=== PATIENT | male | born 1970 | race African-American/Black ===

== ENCOUNTER 2016-12-30 07:00 | Emergency (ER) | payer SELFPAY ==
--- NOTE | 2016-12-30 07:38 | RADIOLOGY REPORT (SQ) ---
EXAM DESCRIPTION: ANKLE LEFT COMPLETE COMPLETED DATE/TIME: 12/30/2016 7:29 am REASON FOR STUDY: left ankle pain/injury COMPARISON: None. NUMBER OF VIEWS: Three views. TECHNIQUE: AP, lateral, and oblique radiographic images acquired of the left ankle. LIMITATIONS: None. FINDINGS: MINERALIZATION: Normal. BONES: No acute fracture or dislocation. No worrisome bone lesions. JOINTS: No effusions. SOFT TISSUES: No soft tissue swelling. No foreign body. OTHER: No other significant finding. IMPRESSION: NEGATIVE STUDY OF THE LEFT ANKLE. NO RADIOGRAPHIC EVIDENCE OF ACUTE INJURY. TECHNICAL DOCUMENTATION: JOB ID: [id number] [employer]- All Rights Reserved
--- NOTE | 2016-12-30 08:15 | ER Document Report ---
ED Extremity Problem, Lower - General Chief Complaint: Foot Pain Stated Complaint: FOOT PAIN Time Seen by Provider: 12/30/16 07:22 Mode of Arrival: Ambulatory Information source: Patient Notes: Patient is a 46-year-old -[place] male who presents to the ER today for left ankle pain that started yesterday. Patient denies any injury, but was walking around when he felt immediate pain and the left side of the left ankle, now radiating like a band around the whole ankle. He denies any numbness or tingling, recent ankle injury.He states that it hurts worse to bear weight on and that he cannot Walk on it. - Related Data Allergies/Adverse Reactions: No Known Allergies Allergy (Unverified 12/30/16 07:08) Past Medical History - General Information source: Patient - Social History Smoking Status: Current Every Day Smoker Chew tobacco use (# tins/day): No Frequency of alcohol use: None Drug Abuse: None Family History: Reviewed & Not Pertinent Renal/ Medical History: Denies: Hx Peritoneal Dialysis Review of Systems - Review of Systems Constitutional: No symptoms reported EENT: No symptoms reported Cardiovascular: No symptoms reported Respiratory: No symptoms reported Gastrointestinal: No symptoms reported Genitourinary: No symptoms reported Male Genitourinary: No symptoms reported Musculoskeletal: See HPI Skin: No symptoms reported Hematologic/Lymphatic: No symptoms reported Neurological/Psychological: No symptoms reported Physical Exam - Vital signs Vitals: Temp Pulse Resp BP Pulse Ox 98.3 F 72 14 143/91 H 98 12/30/16 07:08 12/30/16 07:08 12/30/16 07:08 12/30/16 07:08 12/30/16 07:08 - Notes Notes: PHYSICAL EXAMINATION: GENERAL: Comfortable appearing, but in no acute distress. HEAD: Atraumatic, normocephalic. EYES: Pupils equal round and reactive to light, extraocular movements intact, sclera anicteric, conjunctiva are normal. NECK: Normal range of motion, supple without lymphadenopathy LUNGS: CTAB and equal. No wheezes rales or rhonchi. HEART: Regular rate and rhythm without murmurs EXTREMITIES: Tender over lateral malleolus of the left ankle, normal range of motion, no pitting edema. No cyanosis. NEUROLOGICAL: Cranial nerves grossly intact. Normal sensory/motor exams. PSYCH: Normal mood, normal affect. SKIN: Warm, Dry, normal turgor, no rashes or lesions noted Course - Re-evaluation Re-evalutation: 12/30/16 08:15 X-ray of the left ankle negative for any acute pathology, patient placed in Kai wrap. - Vital Signs Vital signs: Temp Pulse Resp BP Pulse Ox 98.4 F 73 18 153/95 H 97 12/30/16 08:43 12/30/16 08:43 12/30/16 08:43 12/30/16 08:43 12/30/16 08:43 Procedures - Immobilization Left Ankle Time completed: 08:18 Pre-Proc Neuro Vasc Exam: Normal Immobilizer type: Kai wrap Performed by: RN Post-Proc Neuro Vasc Exam: Normal Alignment checked and good: Yes Discharge - Discharge Clinical Impression: Left ankle sprain Qualifiers: Encounter type: initial encounter Involved ligament of ankle: unspecified ligament Qualified Code(s): S93.402A - Sprain of unspecified ligament of left ankle, initial encounter Condition: Stable Disposition: HOME, SELF-CARE Instructions: Sprained Ankle ([facility]), Ice Packs ([facility]) Additional Instructions: Return immediately for any new or worsening symptoms. Follow up with primary care provider, call tomorrow to make followup appointment. Prescriptions: Ibuprofen [Motrin 800 mg Tablet] 800 mg PO Q8H PRN #30 tab PRN Reason: Forms: Return to Work Referrals: LOCALMD,NO [Primary Care Provider] - Follow up as needed
[2016-12-30] MEDS ORDERED: HYDROCODONE/ACETAMINOPHEN 5-325 MG TABLET PO ONE (08:24)
[2016-12-30 09:05] VITALS: BP 153/95
== END 2016-12-30 09:34 | disposition home or self-care (01) ==
LOC: ER 07:00
DX: S93.402A Sprain of unspecified ligament of left ankle, initial encounter (principal); F17.200 Nicotine dependence, unspecified, uncomplicated; X58.XXXA Exposure to other specified factors, initial encounter
CPT/HCPCS: 99283; 73610; L1902

== ENCOUNTER 2018-03-02 23:06 | Observation (INO) | payer OTHER ==
[2018-03-03] MEDS ORDERED: NORMAL SALINE 1000 ML 1,000 ML IV ONE (01:47)
[2018-03-03] MEDS ORDERED: ONDANSETRON 4 MG TAB.RAPDIS PO ONE (01:47)
--- NOTE | 2018-03-03 01:50 | ER Document Report ---
ED Medical Screen (RME) - General Chief Complaint: Upper Abdominal Pain Stated Complaint: STOMACH PAIN Notes: 47-year-old male, comes by EMS for chief complaint of falling and hitting his head, he states he fell because he is drunk, he states he has had a few beers and a couple of shots. He did get knocked out. He has vomited twice. He states his head hurts a lot and he is nauseated. He denies any medications, recreational drugs, or medical history. Roommate called EMS. TRAVEL OUTSIDE OF THE [place] IN LAST 30 DAYS: No - Related Data Allergies/Adverse Reactions: No Known Allergies Allergy (Unverified 12/30/16 07:08) Past Medical History Renal/ Medical History: Denies: Hx Peritoneal Dialysis Physical Exam - Vital signs Vitals: Temp Pulse Resp BP Pulse Ox 98.8 F 68 16 156/95 H 98 03/02/18 23:11 03/02/18 23:11 03/02/18 23:11 03/02/18 23:11 03/02/18 23:11 - HEENT Head: Normocephalic. No: Atraumatic - Left occipital area swelling consistent with hematoma, no open wound, no other signs of injury - Respiratory Chest status: No: Tender - Abdominal Tenderness: No: Tender - Back Back: Normal. No: Deformity/step-off, Vertebra tenderness, Wounds Course - Re-evaluation Re-evalutation: Patient ambulated without difficulty, he is oriented and alert at this time, he follows commands without any difficulty. He does have hematoma over the occipital area. Performing CAT scan of the head and neck per Nexus criteria, no additional injuries noted over his body. - Vital Signs Vital signs: Temp Pulse Resp BP Pulse Ox 98.8 F 68 16 156/95 H 98 03/02/18 23:11 03/02/18 23:11 03/02/18 23:11 03/02/18 23:11 03/02/18 23:11 Doctor's Discharge - Discharge Referrals: LOCALMD,NO [Primary Care Provider] - Follow up as needed
[2018-03-03] MEDS ORDERED: DICYCLOMINE HCL INJ 20 MG/2 ML AMPULE IM ONE (02:35)
--- NOTE | 2018-03-03 03:01 | ER Document Report ---
ED General - General Chief Complaint: Upper Abdominal Pain Stated Complaint: STOMACH PAIN Time Seen by Provider: 03/03/18 01:52 Notes: Patient is a pleasant 47-year-old male who presents with complaint of abdominal pain. Says he has a history of IBS. He says he feels like one of his IBS flares except more intense. He has crampy diffuse abdominal pain that is worse in the upper abdomen. Some nausea. He does have some vomiting. No diarrhea. No blood in stool. Denies any recent stressors. He has seen a mold operator and has had colonoscopies which have been negative. No chest pain. No shortness of breath. No fevers. No other complaints at this time. Patient says he does drink alcohol almost every day. TRAVEL OUTSIDE OF THE [place] IN LAST 30 DAYS: No - Related Data Allergies/Adverse Reactions: No Known Allergies Allergy (Unverified 12/30/16 07:08) Past Medical History - Social History Smoking Status: Never Smoker Frequency of alcohol use: Heavy Drug Abuse: None Family History: Reviewed & Not Pertinent Renal/ Medical History: Denies: Hx Peritoneal Dialysis Review of Systems - Review of Systems Notes: My Normal Review Basic REVIEW OF SYSTEMS: CONSTITUTIONAL : Denies fever, chills, or sweats. Denies recent illness. EENT: Denies eye, ear, throat, or mouth pain or symptoms. Denies nasal or sinus congestion. CARDIOVASCULAR: Denies chest pain. RESPIRATORY: Denies cough, cold, or chest congestion. Denies shortness of breath, difficulty breathing, or wheezing. GASTROINTESTINAL: Abdominal pain. Vomiting. GENITOURINARY: Denies difficulty urinating, painful urination, burning, frequency, or blood in urine. MUSCULOSKELETAL: Denies neck or back pain or joint pain or swelling. SKIN: Denies rash or skin lesions. NEUROLOGICAL: Denies altered mental status or loss of consciousness. Denies headache. Denies weakness or paralysis or loss of use of either side. Denies problems with gait or speech. Denies sensory or motor loss. ALL OTHER SYSTEMS REVIEWED AND NEGATIVE. Physical Exam - Vital signs Vitals: Temp Pulse Resp BP Pulse Ox 98.8 F 68 16 156/95 H 98 03/02/18 23:11 03/02/18 23:11 03/02/18 23:11 03/02/18 23:11 03/02/18 23:11 - Notes Notes: General Appearance: Well nourished, alert, cooperative, no acute distress, moderate obvious discomfort. Vitals: reviewed, See vital signs table. Head: no swelling or tenderness to the head Eyes: PERRL, EOMI, Conjuctiva clear Mouth: No decreasd moisture Lungs: No wheezing, No rales, No rhonci, No accessory muscle use, good air exchange bilaterally. Heart: Normal rate, Regular rythm, No murmur, no rub Abdomen: Normal BS, soft, No rigidity, Palpation over upper abdomen bilaterally. No pain to lower abdomen, No guarding, no rebound, no abdominal masses, no organomegaly Extremities: strength 5/5 in all extremities, good pulses in all extremities, no swelling or tenderness in the extremities, no edema. Skin: warm, dry, appropriate color, no rash Neuro: speech clear, oriented x 3, normal affect, responds appropriately to questions. Course - Re-evaluation Re-evalutation: 03/03/18 05:38 Patient's lipase came back elevated. He admits to history of frequent alcohol use. I do suspect his pancreatitis is related to his alcohol use. I do not suspect gallbladder disease and that most his pain is epigastric and left upper quadrant and also he does not have any elevation of liver enzymes. I did talk to patient about outpatient therapy but the patient concerned that his pain would come back this is intense and requests just to be kept in hospital for next 24 hours to see see if he improves. I did speak with the hospitalist, Dr. Osborne, who agrees to admit the patient. Dictation of this chart was performed using voice recognition software; therefore, there may be some unintended grammatical errors. - Vital Signs Vital signs: Temp Pulse Resp BP Pulse Ox 98.8 F 68 16 156/95 H 98 03/02/18 23:11 03/02/18 23:11 03/02/18 23:11 03/02/18 23:11 03/02/18 23:11 - Laboratory Result Diagrams: 03/03/18 02:00 03/03/18 03:25 Laboratory results interpreted by me: 03/03/18 03/03/18 02:00 03:25 Seg Neutrophils % 78.4 H Carbon Dioxide 21 L Glucose 111 H Lipase 1037.8 H Discharge - Discharge Clinical Impression: Pancreatitis Qualifiers: Chronicity: acute Pancreatitis type: alcohol induced Acute pancreatitis complication: no infection or necrosis Qualified Code(s): K85.20 - Alcohol induced acute pancreatitis without necrosis or infection Condition: Stable Disposition: ADMITTED OBSERVATION Admitting Provider: Hospitalist Unit Admitted: Medical Floor Referrals: LOCALMD,NO [NO LOCAL MD] - Follow up as needed
[2018-03-03 03:05] LABS: ABSOLUTE EOSINOPHILS # (AUTO) 0.1 10^3/uL (0.0-0.6); ABSOLUTE LYMPHOCYTES (AUTO) 1.3 10^3/uL (0.5-4.7); ABSOLUTE MONOCYTES (AUTO) 0.6 10^3/uL (0.1-1.4); ABSOLUTE NEUT (AUTO) 6.9 10^3/uL (1.7-8.2); BASOPHILS % (AUTO) 0.2 % (0-2); EOSINOPHILS % (AUTO) 0.6 % (0-6); HEMATOCRIT 42.6 % (37.9-51.0); HEMOGLOBIN 14.4 g/dL (13.5-17.0); LYMPHOCYTES % (AUTO) 14.2 % (13-45); MEAN CORPUSCULAR HEMOGLOBIN 28.2 pg (27.0-33.4); MEAN CORPUSCULAR HGB CONC 33.9 g/dL (32.0-36.0); MEAN CORPUSCULAR VOLUME 83 fl (80-97); MONOCYTES % (AUTO) 6.6 % (3-13); PLATELET COUNT 173 10^3/uL (150-450); RED BLOOD COUNT 5.12 10^6/uL (4.35-5.55); RED CELL DISTRIBUTION WIDTH 13.6 % (11.5-14.0); SEGMENTED NEUTROPHILS % (AUTO) 78.4 % (42-78); TOTAL CELLS COUNTED % (AUTO) 100 %; WHITE BLOOD COUNT 8.8 10^3/uL (4.0-10.5)
[2018-03-03] MEDS ORDERED: HYDROMORPHONE HCL INJ/PF 2 MG/ML AMPULE IV ONE ×2 (03:46→04:48)
[2018-03-03 04:06] LABS: BLOOD UREA NITROGEN 7 mg/dL (7-20); CALCIUM 8.8 mg/dL (8.4-10.2)
[2018-03-03 04:07] LABS: ALANINE AMINOTRANSFERASE 48 U/L (21-72); ALBUMIN 3.9 g/dL (3.5-5.0); ALKALINE PHOSPHATASE 72 U/L (38-126); ANION GAP 14 (5-19); ASPARTATE AMINO TRANSFERASE 47 U/L (17-59); BILIRUBIN,DIRECT 0.4 mg/dL (0.0-0.4); BILIRUBIN,TOTAL 0.8 mg/dL (0.2-1.3); CARBON DIOXIDE 21 mmol/L (22-30); CHLORIDE 106 mmol/L (98-107); GLUCOSE 111 mg/dL (75-110); LIPASE 1037.8 U/L (23-300); POTASSIUM 3.8 mmol/L (3.6-5.0); SODIUM 141.2 mmol/L (137-145); TOTAL PROTEIN 7.1 g/dL (6.3-8.2)
[2018-03-03] MEDS ORDERED: VANCOMYCIN HCL INJ 1000 MG VIAL IV ONE (05:27)
[2018-03-03] MEDS ORDERED: FUROSEMIDE INJ/PF 40 MG/4 ML SDV IV ONE (05:28)
[2018-03-03] MEDS ORDERED: IPRATROPIUM/ALBUTEROL 0.5-2.5 MG/3 ML AMPUL NEB PRN (05:33)
[2018-03-03] MEDS ORDERED: KETOROLAC TROMETHAMINE INJ/PF 30 MG/1 ML SDV IV PRN (05:33)
[2018-03-03] MEDS ORDERED: MAG HYDROX/AL HYDROX/SIMETH SUSP 30 ML UDCUP PO PRN (05:33)
[2018-03-03] MEDS ORDERED: HYDRALAZINE HCL INJ/PF 20 MG/1 ML SDV IV PRN (05:33)
[2018-03-03] MEDS ORDERED: VANCOMYCIN HCL INJ 1000 MG VIAL ONE (05:58)
[2018-03-03] MEDS: HEPARIN SOD (PORCINE) 5,000 UNIT/ML 1 ML SYRINGE SUBCUT SCH ×3 (06:37→22:53)
--- NOTE | 2018-03-03 06:38 | PDOC H&P ---
History of Present Illness Admission Date/PCP: 03/03/18 05:42 Patient complains of: Epigastric abdominal pain History of Present Illness: UMU OSORIO is a 47 year old male with a past medical history of irritable bowel syndrome and alcohol induced pancreatitis. Patient presents with 72 hours of abdominal pain which is 3 out of 5 intensity, nonradiating, boring in nature associated with nausea and vomiting of gastric content. Worsened by p.o. intake. Recognizing symptoms he seeks evaluation emergency room where he is found to have an elevated lipase but unremarkable LFTs and CT abdomen pelvis. He requires IV medication for ongoing symptoms and subsequently referred to the hospitalist for admission. He admits previous episode approximately 1 year ago. His last drink of alcohol was approximately 72 hours ago, he denies new medication or history of alcohol withdrawal, blackouts or seizure. Past Medical History Medical History: None GI Medical History: Reports: Other - Pancreatitis and irritable bowel syndrome Psychiatric Medical History: Denies: Substance Abuse, Tobacco Dependency Past Surgical History Past Surgical History: Reports: None Social History Information Source: Patient Lives with: Spouse/Significant other Smoking Status: Never Smoker Frequency of Alcohol Use: Heavy - Patient estimates 10-15 units of alcohol 3-5 days a week. Drugs: None - Advance Directive Resuscitation Status: Full Code Family History Family History: Hypertension Parental Family History Reviewed: Yes Children Family History Reviewed: Yes Sibling(s) Family History Reviewed.: Yes Medication/Allergy Home Medications: Ibuprofen [Motrin 800 mg Tablet] 800 mg PO Q8H PRN #30 tab 12/30/16 Allergies/Adverse Reactions: No Known Allergies Allergy (Unverified 12/30/16 07:08) Review of Systems Constitutional: PRESENT: as per HPI Eyes: ABSENT: visual disturbances Ears: ABSENT: hearing changes Cardiovascular: ABSENT: chest pain, dyspnea on exertion, edema, orthropnea, palpitations Respiratory: ABSENT: cough, hemoptysis Gastrointestinal: PRESENT: as per HPI, abdominal pain, bloating, diarrhea, nausea, vomiting. ABSENT: constipation Genitourinary: ABSENT: dysuria, hematuria Musculoskeletal: ABSENT: joint swelling Integumentary: ABSENT: rash, wounds Neurological: ABSENT: abnormal gait, abnormal speech, confusion, dizziness, focal weakness, syncope Psychiatric: ABSENT: anxiety, depression, homidical ideation, suicidal ideation Endocrine: ABSENT: cold intolerance, heat intolerance, polydipsia, polyuria Hematologic/Lymphatic: ABSENT: easy bleeding, easy bruising Physical Exam Vital Signs: Temp Pulse Resp BP Pulse Ox 98.8 F 68 16 156/95 H 98 03/02/18 23:11 03/02/18 23:11 03/02/18 23:11 03/02/18 23:11 03/02/18 23:11 General appearance: PRESENT: cooperative, mild distress, well-developed, well- nourished. ABSENT: disheveled Head exam: PRESENT: atraumatic, normocephalic Eye exam: PRESENT: conjunctiva pink, EOMI, PERRLA. ABSENT: scleral icterus Ear exam: PRESENT: normal external ear exam Mouth exam: PRESENT: moist, tongue midline Neck exam: ABSENT: carotid bruit, JVD, lymphadenopathy, thyromegaly Respiratory exam: PRESENT: clear to auscultation hal. ABSENT: rales, rhonchi, wheezes Cardiovascular exam: PRESENT: RRR. ABSENT: diastolic murmur, rubs, systolic murmur Pulses: PRESENT: normal dorsalis pedis pul Vascular exam: PRESENT: normal capillary refill GI/Abdominal exam: PRESENT: distended, hyperactive bowel sounds, normal bowel sounds, soft, tenderness. ABSENT: firm, guarding, mass, organolmegaly, rebound Rectal exam: PRESENT: deferred Extremities exam: PRESENT: full ROM. ABSENT: calf tenderness, clubbing, pedal edema Neurological exam: PRESENT: alert, awake, oriented to person, oriented to place , oriented to time, oriented to situation, CN II-XII grossly intact. ABSENT: motor sensory deficit Psychiatric exam: PRESENT: appropriate affect, normal mood. ABSENT: homicidal ideation, suicidal ideation Skin exam: PRESENT: dry, intact, warm. ABSENT: cyanosis, rash Assessment & Plan - Diagnosis (1) Alcoholic pancreatitis Qualifiers: Chronicity: acute Acute pancreatitis complication: unspecified Qualified Code(s): K85.20 - Alcohol induced acute pancreatitis without necrosis or infection Is this a current diagnosis for this admission?: Yes Plan: Med floor observation, bowel rest, symptomatic management, IV fluids and thiamine. Education (2) Alcohol dependence Is this a current diagnosis for this admission?: Yes Plan: Thiamine and folate, education, as needed Ativan though doubt evolution of withdrawal (3) Nausea & vomiting Is this a current diagnosis for this admission?: Yes Plan: Secondary to #1, symptomatic management. (4) Abdominal pain Is this a current diagnosis for this admission?: Yes Plan: Secondary to #1, nonnarcotic symptomatic management. - Time Time Spent: 30 to 50 Minutes
[2018-03-03] MEDS ORDERED: FUROSEMIDE INJ/PF 40 MG/4 ML SDV ONE (06:41)
[2018-03-03] MEDS: NORMAL SALINE 1000 ML 1,000 ML IV PRN ×2 (09:16→14:38)
[2018-03-03] MEDS ORDERED: THIAMINE HCL 100 MG, FOLIC ACID 1 MG in NORMAL SALINE 250 ML IV SCH (10:00)
[2018-03-03 12:47] LABS: URINE AMPHETAMINES SCREEN NEGATIVE; URINE BARBITURATES SCREEN NEGATIVE; URINE BENZODIAZEPINES SCREEN NEGATIVE; URINE COCAINE SCREEN NEGATIVE; URINE MARIJUANA (THC) SCREEN NEGATIVE; URINE METHADONE SCREEN NEGATIVE; URINE PHENCYCLIDINE SCREEN NEGATIVE
[2018-03-03] MEDS ORDERED: HYDROMORPHONE HCL INJ/PF 2 MG/ML AMPULE IV PRN (14:18)
[2018-03-03] MEDS: MULTIVITAMIN TABLET PO SCH (15:17)
[2018-03-03] MEDS: FOLIC ACID 1 MG TABLET PO SCH (15:17)
--- NOTE | 2018-03-03 16:10 | RADIOLOGY REPORT (SQ) ---
EXAM DESCRIPTION: CT ABD/PELVIS NO ORAL OR IV COMPLETED DATE/TIME: 03/03/2018 3:43 pm REASON FOR STUDY: acute pancreatitis COMPARISON: None. TECHNIQUE: CT scan of the abdomen and pelvis performed without intravenous or oral contrast. Images reviewed with lung, soft tissue, and bone windows. Reconstructed coronal and sagittal MPR images revi ewed. All images stored on PACS. All CT scanners at this facility use dose modulation, iterative reconstruction, and/or weight based d osing when appropriate to reduce radiation dose to as low as reasonably achievable (ALARA). [facility]: Dose Right [facility]: CareDose [facility]: Dose Right [facility]: Teradose 4D [facility]: [employer] RADIATION DOSE: CT Rad equipment meets quality standard of care and radiation dose reduction techniq ues were employed. CTDIvol: 5.6 mGy. DLP: 324 mGy-cm.mGy. LIMITATIONS: None. FINDINGS: LOWER CHEST: No significant findings. No nodules or infiltrates. NON-CONTRASTED LIVER, SPLEEN, ADRENALS: Evaluation limited by lack of IV contrast. No identified sign ificant masses. PANCREAS: Diffuse peripancreatic stranding with edema extending into the mesenteries and along the ri ght flank. No fluid collection. No mass. GALLBLADDER: No identified stones by CT criteria. No inflammatory changes to suggest cholecystitis. RIGHT KIDNEY AND URETER: No suspicious masses. Assessment limited by lack of IV contrast. No signif icant calcifications. No hydronephrosis or hydroureter. LEFT KIDNEY AND URETER: No suspicious masses. Assessment limited by lack of IV contrast. No signifi cant calcifications. No hydronephrosis or hydroureter. AORTA AND RETROPERITONEUM: No aneurysm. No retroperitoneal masses or adenopathy. BOWEL AND PERITONEAL CAVITY: No obvious masses or inflammatory changes. No free fluid. APPENDIX: Normal. PELVIS, BLADDER, AND ABDOMINAL WALL:No abnormal masses. No free fluid. Bladder normal. BONES: No significant findings. OTHER: No other significant finding. IMPRESSION: Acute pancreatitis with peripancreatic fat stranding edema extending in the mesenteries and along the right flank. No fluid collection COMMENT: Quality ID # [id number]: Final reports with documentation of one or more dose reduction techniques (e.g., Automated exposure control, adjustment of the mA and/or kV according to patient size, use of iterative reconstruction technique) TECHNICAL DOCUMENTATION: JOB ID: [id number] [employer]- All Rights Reserved Reading location - IP/workstation name: [email or web address]
--- NOTE | 2018-03-03 21:35 | PDOC PROGRESS REPORT ---
Subjective Progress Note for:: 03/03/18 Subjective:: 47-year-old male with a known alcohol history, presenting with likely acute pancreatitis with elevated lipase, complaints of nausea with vomiting and loose stools. He describes a history of irritable bowel syndrome and initially thought this was secondary to that. Describes drinking at least 3 times per week shots plus multiple glasses of beer. Denies a prior cholecystectomy. Denies any gallstone history and his family or himself. Describes current abdominal pain as a 3/10. No CT of Abd on chart, so will evaluate imaging of pancreas. Patient denies any recent imaging. Reason For Visit: ETOH PANCREATITIS NAUSEA VOMITING Physical Exam Vital Signs: Temp Pulse Resp BP Pulse Ox 98.5 F 73 14 136/90 H 99 03/03/18 11:56 03/03/18 11:56 03/03/18 11:56 03/03/18 11:56 03/03/18 11:56 Intake & Output 03/02/18 03/03/18 03/04/18 06:59 06:59 06:59 Intake Total 934.2 Output Total 600 Balance 334.2 Weight 81.6 kg General appearance: PRESENT: no acute distress. ABSENT: disheveled Head exam: PRESENT: atraumatic, normocephalic Eye exam: ABSENT: conjunctival injection, EOMI Ear exam: PRESENT: normal external ear exam. ABSENT: bleeding Mouth exam: PRESENT: moist. ABSENT: dry mucosa Neck exam: PRESENT: full ROM. ABSENT: JVD Respiratory exam: ABSENT: accessory muscle use, rales, rhonchi, stridor Cardiovascular exam: PRESENT: RRR, +S1, +S2 Pulses: PRESENT: normal carotid pulses. ABSENT: normal dorsalis pedis pul GI/Abdominal exam: PRESENT: guarding, soft, tenderness. ABSENT: ascites, mass, rigid Extremities exam: ABSENT: calf tenderness, joint swelling Musculoskeletal exam: PRESENT: ambulatory, full ROM Neurological exam: PRESENT: alert, oriented to person, oriented to place, oriented to time, oriented to situation Psychiatric exam: ABSENT: agitated, anxious Focused psych exam: ABSENT: paranoid, pressured speech Skin exam: PRESENT: dry. ABSENT: mottled Assessment & Plan - Diagnosis (1) Pancreatitis Qualifiers: Chronicity: acute Pancreatitis type: alcohol induced Acute pancreatitis complication: no infection or necrosis Qualified Code(s): K85.20 - Alcohol induced acute pancreatitis without necrosis or infection Is this a current diagnosis for this admission?: Yes Plan: Continue IVF support and pain medications. discussed alcohol abstinence and potential progress of his condition. Will check CT Abd/Pelvis to assess for necrosis or pseudocysts. positive for elevated Lipase, consistent with Acute pancreatitis (2) Alcoholic pancreatitis Qualifiers: Chronicity: acute Acute pancreatitis complication: unspecified Qualified Code(s): K85.20 - Alcohol induced acute pancreatitis without necrosis or infection Is this a current diagnosis for this admission?: Yes Plan: please see above (3) Alcohol dependence Is this a current diagnosis for this admission?: Yes Plan: continue thiamine. add multivitamin and folate encourage alcohol cessation. (4) Nausea & vomiting Is this a current diagnosis for this admission?: Yes Plan: continue prn antiemetics - Time Time Spent with patient: 15-24 minutes - Inpatient Certification Based on my medical assessment, after consideration of the patient's comorbidities, presenting symptoms, or acuity I expect that the services needed warrant INPATIENT care.: Yes I certify that my determination is in accordance with my understanding of Medicare's requirements for reasonable and necessary INPATIENT services [42 CFR 412.3e].: Yes Medical Necessity: Need Close Monitoring Due to Risk of Patient Decompensation
[2018-03-04] MEDS: ACETAMINOPHEN 325 MG TABLET PO PRN ×2 (05:44→11:44)
[2018-03-04] MEDS: HEPARIN SOD (PORCINE) 5,000 UNIT/ML 1 ML SYRINGE SUBCUT SCH ×3 (05:45→22:29)
[2018-03-04 06:41] LABS: ABSOLUTE EOSINOPHILS # (AUTO) 0.2 10^3/uL (0.0-0.6); ABSOLUTE LYMPHOCYTES (AUTO) 1.3 10^3/uL (0.5-4.7); ABSOLUTE MONOCYTES (AUTO) 0.4 10^3/uL (0.1-1.4); ABSOLUTE NEUT (AUTO) 2.8 10^3/uL (1.7-8.2); BASOPHILS % (AUTO) 0.5 % (0-2); HEMATOCRIT 36.4 % (37.9-51.0); HEMOGLOBIN 12.5 g/dL (13.5-17.0); LYMPHOCYTES % (AUTO) 26.8 % (13-45); MEAN CORPUSCULAR HEMOGLOBIN 28.7 pg (27.0-33.4); MEAN CORPUSCULAR HGB CONC 34.3 g/dL (32.0-36.0); MEAN CORPUSCULAR VOLUME 84 fl (80-97); MONOCYTES % (AUTO) 8.9 % (3-13); PLATELET COUNT 135 10^3/uL (150-450); RED BLOOD COUNT 4.36 10^6/uL (4.35-5.55); RED CELL DISTRIBUTION WIDTH 13.6 % (11.5-14.0); SEGMENTED NEUTROPHILS % (AUTO) 58.8 % (42-78); TOTAL CELLS COUNTED % (AUTO) 100 %; WHITE BLOOD COUNT 4.7 10^3/uL (4.0-10.5)
[2018-03-04 06:56] LABS: ALANINE AMINOTRANSFERASE 41 U/L (21-72); ALBUMIN 3.6 g/dL (3.5-5.0); ALKALINE PHOSPHATASE 70 U/L (38-126); ANION GAP 10 (5-19); ASPARTATE AMINO TRANSFERASE 40 U/L (17-59); BILIRUBIN,DIRECT 0.4 mg/dL (0.0-0.4); BILIRUBIN,TOTAL 0.7 mg/dL (0.2-1.3); BLOOD UREA NITROGEN 7 mg/dL (7-20); CALCIUM 8.7 mg/dL (8.4-10.2); CARBON DIOXIDE 28 mmol/L (22-30); CHLORIDE 101 mmol/L (98-107); CHOLESTEROL 255.52 mg/dL (0-200); GLUCOSE 91 mg/dL (75-110); POTASSIUM 3.5 mmol/L (3.6-5.0); SODIUM 139.4 mmol/L (137-145); TOTAL PROTEIN 6.9 g/dL (6.3-8.2)
[2018-03-04 07:06] LABS: DIRECT LDL 51 mg/dL (<100)
[2018-03-04 07:25] LABS: TRIGLYCERIDES 689 mg/dL (<150)
[2018-03-04] MEDS: FOLIC ACID 1 MG TABLET PO SCH (10:04)
[2018-03-04] MEDS: THIAMINE HCL 100 MG TABLET PO SCH (10:04)
[2018-03-04] MEDS: MULTIVITAMIN TABLET PO SCH (10:04)
--- NOTE | 2018-03-04 21:41 | PDOC PROGRESS REPORT ---
Subjective Progress Note for:: 03/04/18 Subjective:: 47-year-old male with a known alcohol history, presenting with likely acute pancreatitis with elevated lipase, complaints of nausea with vomiting and loose stools. He describes a history of irritable bowel syndrome and initially thought this was secondary to that. Describes drinking at least 3 times per week shots plus multiple glasses of beer. Denies a prior cholecystectomy. Denies any gallstone history and his family or himself. CT abd/pelvis showed pancreatitis with no signs of necrosis or pseudocyst. Abdominal pain improving today. Advancing diet. Reason For Visit: ETOH PANCREATITIS NAUSEA VOMITING Physical Exam Vital Signs: Temp Pulse Resp BP Pulse Ox 98.6 F 79 18 146/96 H 97 03/04/18 19:25 03/04/18 19:25 03/04/18 19:25 03/04/18 19:25 03/04/18 19:25 Intake & Output 03/03/18 03/04/18 03/05/18 06:59 06:59 06:59 Intake Total 2611.2 520 Output Total 600 Balance 2011.2 520 Weight 84.5 kg General appearance: PRESENT: no acute distress, cooperative Head exam: PRESENT: atraumatic, normocephalic Eye exam: PRESENT: EOMI, PERRLA Ear exam: PRESENT: normal external ear exam. ABSENT: bleeding Mouth exam: PRESENT: moist, neck supple. ABSENT: dry mucosa Respiratory exam: ABSENT: accessory muscle use, rales, rhonchi, wheezes Cardiovascular exam: PRESENT: RRR, +S1, +S2 Pulses: PRESENT: normal radial pulses, normal dorsalis pedis pul Vascular exam: PRESENT: normal capillary refill. ABSENT: pallor GI/Abdominal exam: PRESENT: soft, tenderness. ABSENT: distended, hyperactive bowel sounds, hypoactive bowel sounds, rigid Extremities exam: ABSENT: calf tenderness, joint swelling Musculoskeletal exam: PRESENT: ambulatory, full ROM Neurological exam: PRESENT: alert, oriented to person, oriented to place, oriented to time, oriented to situation, CN II-XII grossly intact Psychiatric exam: ABSENT: agitated, anxious Focused psych exam: ABSENT: catatonic, paranoid Skin exam: ABSENT: abrasion, mottled Results Laboratory Results: 03/04/18 05:39 03/04/18 05:39 03/04/18 03/04/18 05:39 05:39 WBC 4.7 RBC 4.36 Hgb 12.5 L Hct 36.4 L MCV 84 MCH 28.7 MCHC 34.3 RDW 13.6 Plt Count 135 L Seg Neutrophils % 58.8 Lymphocytes % 26.8 Monocytes % 8.9 Eosinophils % 5.0 Basophils % 0.5 Absolute Neutrophils 2.8 Absolute Lymphocytes 1.3 Absolute Monocytes 0.4 Absolute Eosinophils 0.2 Absolute Basophils 0.0 Sodium 139.4 Potassium 3.5 L Chloride 101 Carbon Dioxide 28 Anion Gap 10 BUN 7 Creatinine 0.82 Est GFR ( Amer) > 60 Est GFR (Non-Af Amer) > 60 Glucose 91 Calcium 8.7 Total Bilirubin 0.7 AST 40 ALT 41 Alkaline Phosphatase 70 Total Protein 6.9 Albumin 3.6 Triglycerides 689 H Cholesterol 255.52 H LDL Cholesterol Direct 51 VLDL Cholesterol UNABLE TO CALCULATE HDL Cholesterol 41 Impressions: Abdomen/Pelvis CT 03/03/18 00:00 IMPRESSION: Acute pancreatitis with peripancreatic fat stranding edema extending in the mesenteries and along the right flank. No fluid collection Assessment & Plan - Diagnosis (1) Pancreatitis Qualifiers: Chronicity: acute Pancreatitis type: alcohol induced Acute pancreatitis complication: no infection or necrosis Qualified Code(s): K85.20 - Alcohol induced acute pancreatitis without necrosis or infection Is this a current diagnosis for this admission?: Yes Plan: Continue prn pain medications. discussed alcohol abstinence and potential progress of his condition. CT Abd/Pelvis positive for pancreatitis, negative for necrosis or pseudocysts. advance diet as tolerated. (2) Alcoholic pancreatitis Qualifiers: Chronicity: acute Acute pancreatitis complication: unspecified Qualified Code(s): K85.20 - Alcohol induced acute pancreatitis without necrosis or infection Is this a current diagnosis for this admission?: Yes Plan: please see above (3) Alcohol dependence Is this a current diagnosis for this admission?: Yes Plan: continue thiamine, multivitamin and folate counseled again on alcohol cessation. May benefit from AA group after d/c (4) Nausea & vomiting Is this a current diagnosis for this admission?: Yes Plan: continue prn antiemetics - Time Time Spent with patient: 15-24 minutes - Inpatient Certification Based on my medical assessment, after consideration of the patient's comorbidities, presenting symptoms, or acuity I expect that the services needed warrant INPATIENT care.: Yes I certify that my determination is in accordance with my understanding of Medicare's requirements for reasonable and necessary INPATIENT services [42 CFR 412.3e].: Yes Medical Necessity: Need Close Monitoring Due to Risk of Patient Decompensation
[2018-03-05] MEDS: HEPARIN SOD (PORCINE) 5,000 UNIT/ML 1 ML SYRINGE SUBCUT SCH (05:22)
[2018-03-05 05:31] LABS: HEMATOCRIT 35.2 % (37.9-51.0); MEAN CORPUSCULAR HEMOGLOBIN 28.5 pg (27.0-33.4); MEAN CORPUSCULAR HGB CONC 34.2 g/dL (32.0-36.0); MEAN CORPUSCULAR VOLUME 84 fl (80-97); PLATELET COUNT 140 10^3/uL (150-450); RED BLOOD COUNT 4.22 10^6/uL (4.35-5.55); RED CELL DISTRIBUTION WIDTH 13.4 % (11.5-14.0); WHITE BLOOD COUNT 4.5 10^3/uL (4.0-10.5)
[2018-03-05 05:43] LABS: ALBUMIN 3.6 g/dL (3.5-5.0); ANION GAP 9 (5-19); BLOOD UREA NITROGEN 6 mg/dL (7-20); CALCIUM 8.9 mg/dL (8.4-10.2); CARBON DIOXIDE 28 mmol/L (22-30); CHLORIDE 101 mmol/L (98-107); GLUCOSE 125 mg/dL (75-110); PHOSPHORUS 3.8 mg/dL (2.5-4.5); POTASSIUM 3.5 mmol/L (3.6-5.0); SODIUM 137.9 mmol/L (137-145)
[2018-03-05] MEDS ORDERED: POTASSIUM CHLORIDE 10 MEQ CAPSULE.ER PO ONE (08:33)
[2018-03-05] MEDS ORDERED: NORMAL SALINE 1000 ML 1,000 ML IV PRN (08:35)
[2018-03-05] MEDS: THIAMINE HCL 100 MG TABLET PO SCH (09:16)
[2018-03-05] MEDS: MULTIVITAMIN TABLET PO SCH (09:16)
[2018-03-05] MEDS: FOLIC ACID 1 MG TABLET PO SCH (09:16)
[2018-03-05 13:02] VITALS: BP 148/92
--- NOTE | 2018-03-05 13:40 | PDOC DISCHARGE SUMMARY ---
General - Admit/Disc Date/PCP Admission Date/Primary Care Provider: 03/03/18 05:42 Discharge Date: 03/05/18 - seen on rounds this morning - Discharge Diagnosis (1) Abdominal pain Is this a current diagnosis for this admission?: Yes (2) Alcoholic pancreatitis Is this a current diagnosis for this admission?: Yes (3) Nausea & vomiting Is this a current diagnosis for this admission?: Yes - Additional Information Resuscitation Status: Full Code Discharge Diet: As Tolerated Discharge Activity: Activity As Tolerated Prescriptions: Atorvastatin Calcium [Lipitor 40 mg Tablet] 40 mg PO QHS #30 tablet Folic Acid [Folvite 1 mg Tablet] 1 mg PO DAILY 30 Days #30 tablet Multivitamin [Tab-A-Christelle (Multiple Vitamin) Tablet] 1 tab PO DAILY #30 tablet Thiamine HCl [Thiamine 100 mg Tablet] 100 mg PO DAILY #30 tablet Home Medications: Dicyclomine HCl [Bentyl 10 mg Capsule] 20 mg PO BID 03/03/18 Atorvastatin Calcium [Lipitor 40 mg Tablet] 40 mg PO QHS #30 tablet 03/05/18 Folic Acid [Folvite 1 mg Tablet] 1 mg PO DAILY 30 Days #30 tablet 03/05/18 Multivitamin [Tab-A-Christelle (Multiple Vitamin) Tablet] 1 tab PO DAILY #30 tablet Thiamine HCl [Thiamine 100 mg Tablet] 100 mg PO DAILY #30 tablet 03/05/18 History of Present Illness History of Present Illness: UMU OSORIO is a 47 year old male admitted for abdominal pain, n/v who was found to have pancreatitis Hospital Course Hospital Course: after admission he was started IV fluids and pain control. he improved very quickly and today he was requesting discharge. discussed about elevated lipase levels still but he wants to go home. discussed risks and benefits of elevated lipase and relapsing of his pancreatitis- he understands and verbalizes understands but still wants to go home. states he [facility]. he's tolerating PO diet and denies any abdominal pain, n/v at this time. advised to f/u in 1 week. counseled about alcohol cessation and lifestyle changes. his cholesterol was high- TGs were >650- discussed in details. started on atorvastatin and discussed about adding fibrates with his PCP. discussed about medication effects. discussed about lifestyle changes he verbalized understand of advices given today Physical Exam Vital Signs: Temp Pulse Resp BP Pulse Ox 98.6 F 85 18 149/94 H 98 03/04/18 23:27 03/04/18 23:27 03/04/18 23:27 03/04/18 23:27 03/04/18 23:27 Intake & Output 03/04/18 03/05/18 03/06/18 06:59 06:59 06:59 Intake Total 2611.2 720 Output Total 600 Balance 2011.2 720 Weight 186 lb 4.65 oz 188 lb 0.869 oz General appearance: PRESENT: no acute distress Head exam: PRESENT: atraumatic, normocephalic Eye exam: PRESENT: EOMI, PERRLA Ear exam: PRESENT: normal external ear exam Mouth exam: PRESENT: neck supple, tongue midline Respiratory exam: PRESENT: clear to auscultation hal, symmetrical Cardiovascular exam: PRESENT: +S1, +S2 Pulses: PRESENT: +2 pedal pulses bilateral GI/Abdominal exam: PRESENT: normal bowel sounds, soft. ABSENT: tenderness Musculoskeletal exam: PRESENT: full ROM. ABSENT: tenderness Neurological exam: PRESENT: alert, awake, oriented to person, oriented to place , oriented to time, oriented to situation, CN II-XII grossly intact Results Laboratory Results: 03/05/18 05:18 03/05/18 05:18 03/05/18 03/05/18 03/05/18 05:18 05:18 05:18 WBC 4.5 RBC 4.22 L Hgb 12.0 L Hct 35.2 L MCV 84 MCH 28.5 MCHC 34.2 RDW 13.4 Plt Count 140 L Sodium 137.9 Potassium 3.5 L Chloride 101 Carbon Dioxide 28 Anion Gap 9 BUN 6 L Creatinine 0.74 Est GFR ( Amer) > 60 Est GFR (Non-Af Amer) > 60 Glucose 125 H Calcium 8.9 Phosphorus 3.8 Albumin 3.6 Lipase 469.7 H Impressions: Abdomen/Pelvis CT 03/03/18 00:00 IMPRESSION: Acute pancreatitis with peripancreatic fat stranding edema extending in the mesenteries and along the right flank. No fluid collection Qualifiers - * PATIENT BEING DISCHARGED WITH ANY OF THE FOLLOWING DIAGNOSIS: No VTE patient discharged on overlapping Therapy?: Yes Plan Time Spent: Less than 30 Minutes
[2018-03-05] MEDS ORDERED: ATORVASTATIN CALCIUM 40 MG TABLET PO SCH (22:00)
== END 2018-03-05 13:23 | disposition home or self-care (01) ==
LOC: ER 23:06 → UNDOADMOB 03-03 05:39 → EH 03-03 05:39 → 4W 03-03 11:55 → 4S 03-03 16:22
PROVIDERS: ADMIT Internal Medicine; ATTEND Internal Medicine
DX: R10.9 Unspecified abdominal pain (principal); K85.20 Alcohol induced acute pancreatitis without necrosis or infection; F10.20 Alcohol dependence, uncomplicated; R11.2 Nausea with vomiting, unspecified; K58.9 Irritable bowel syndrome, unspecified; Z79.899 Other long term (current) drug therapy; Z79.82 Long term (current) use of aspirin
CPT/HCPCS: 99285; 80069; 36415 ×3; 83690 ×2; 85025 ×2; 85027; 80053 ×2; 80307; 80061; 74176; G0378 ×4; J1644 ×2; J0500; S0119; J3490; J1940; J1885; J1170; J3411; J7030; J7050; J3370